=== PATIENT | female | born 2000 | race Two or more races ===

== ENCOUNTER 2020-03-06 16:36 | Emergency (ER) | payer OTHER ==
[~2020-03-06] VITALS: Ht 149.9 cm; Wt 47.2 kg
[2020-03-06] MEDS ORDERED: PRENATABS FA T1 EACH (16:48)
== END 2020-03-07 15:03 | disposition home or self-care (01) ==
LOC: ER 16:36
DX: O23.42 Unspecified infection of urinary tract in pregnancy, second trimester (principal); Z34.02 Encounter for supervision of normal first pregnancy, second trimester

== ENCOUNTER → 2020-04-18 | Outpatient (CLI) | payer OTHER ==
[~2020-04-18] MED LIST: PRENATABS FA T1 EACH
== END | disposition home or self-care (01) ==
LOC: PRENATAL 08:00
PROVIDERS: ATTEND Obstetrics & Gynecology Maternal & Fetal Medicine
DX: O35.0XX1 Maternal care for (suspected) central nervous system malformation in fetus, fetus 1 (principal); O35.3XX1 Maternal care for (suspected) damage to fetus from viral disease in mother, fetus 1; O98.512 Other viral diseases complicating pregnancy, second trimester; O99.891 Other specified diseases and conditions complicating pregnancy; Z36.89 Encounter for other specified antenatal screening; Z3A.21 21 weeks gestation of pregnancy

== ENCOUNTER 2020-08-23 14:15 | Inpatient (IN) | payer OTHER ==
[~2020-08-23] VITALS: Ht 149.9 cm; Wt 64.4 kg
[2020-08-23] MEDS ORDERED: SYNTHROID100 MCG PO (14:42)
[2020-08-27] MEDS ORDERED: IBUPROFEN400 MG PO (13:13)
== END 2020-08-27 13:52 | disposition home or self-care (01) | DRG 807 ==
LOC: LDR 14:15 → OB/GYN 14:15
PROVIDERS: ADMIT Obstetrics & Gynecology; ATTEND Obstetrics & Gynecology
PROC: 10E0XZZ Delivery of Products of Conception, External Approach (ICD-10-PCS; principal; 2020-08-24)
PROC: 0KQM0ZZ Repair Perineum Muscle, Open Approach (ICD-10-PCS; 2020-08-24)
PROC: 4A1HXFZ Monitoring of Products of Conception, Cardiac Rhythm, External Approach (ICD-10-PCS; 2020-08-24)
DX: O70.1 Second degree perineal laceration during delivery (principal); O48.0 Post-term pregnancy; O99.824 Streptococcus B carrier state complicating childbirth; O99.284 Endocrine, nutritional and metabolic diseases complicating childbirth; E03.9 Hypothyroidism, unspecified; Z37.0 Single live birth; Z3A.40 40 weeks gestation of pregnancy; Z20.822 Contact with and (suspected) exposure to COVID-19